=== PATIENT | female | born 1975 | race Caucasian/White ===

== ENCOUNTER 2024-09-05 19:52 | Emergency (ER) | payer BC ==
[2024-09-05] MEDS ORDERED: Sodium Chloride 0.9% 10 ML Syringe FLUSH PRN (20:14)
[2024-09-05] MEDS: diphenhydrAMINE 50 MG/ML SDV IVPUSH ONE (20:20)
[2024-09-05] MEDS: cloNIDine 0.1 MG Tab PO ONE (20:45)
[2024-09-05] MEDS: ALPRAZolam 0.25 MG Tab PO ONE (20:45)
[2024-09-05] MEDS: Sodium Chloride 0.9% 1,000 ML IV ONE (20:59)
[2024-09-05] MEDS: Ketorolac 30 MG/ML SDV IVPUSH ONE (22:03)
[2024-09-05] MEDS: Metoclopramide 10 MG/2 ML SDV IVPUSH ONE (22:03)
== END 2024-09-05 22:35 | disposition home or self-care (01) ==
LOC: VM.ED 19:52
DX: L50.9 Urticaria, unspecified (principal); I10 Essential (primary) hypertension; Z88.5 Allergy status to narcotic agent; Z88.8 Allergy status to other drugs, medicaments and biological substances; Z91.013 Allergy to seafood
CPT/HCPCS: 96361; 96374; 96375; 99284; 99284-25; A9270-GY; J1200; J1885; J2765; J7030